=== PATIENT | female | born 1945 | race Caucasian/White ===

== ENCOUNTER 2019-05-23 20:48 | Observation (INO) ==
[2019-05-24] MEDS ORDERED: Naloxone 0.4 MG/ML INJ IVP PRN (05:50)
[2019-05-24 06:25] LABS: Hematocrit 32.7 % (35.3-44.9); Hemoglobin 9.7 g/dL (11.5-15.4); Mean Corpuscular HGB Conc 29.7 g/dL (31.6-35.5); Mean Corpuscular Volume 87.7 fL (83.0-100.0); Mean Platelet Volume 9.5 fL (9.4-12.4); Platelet Count 163 K/mcL (140-400); Red Blood Count 3.73 M/mcL (3.82-4.97); Red Cell Distribution Width 14.5 % (11.5-14.5); White Blood Count 6.4 K/mcL (4.3-11.1)
[2019-05-24 06:45] LABS: Alanine Aminotransferase 11 Units/L (7-52); Albumin 3.4 g/dL (3.5-5.7); Albumin/Globulin Ratio 1.3 (1.1-2.2); Alkaline Phosphatase 128 Units/L (34-104); Aspartate Amino Transferase 10 Units/L (13-39); BUN/Creatinine Ratio 15 (6-26); Bilirubin,Total 0.3 mg/dL (0.3-1.0); Blood Urea Nitrogen 16 mg/dL (8-23); Calcium 8.7 mg/dL (8.6-10.3); Carbon Dioxide 36 mEq/L (23-29); Chloride 101 mEq/L (98-107); Globulin 2.7 g/dL (2.4-3.5); Glucose 216 mg/dL (70-105); Magnesium 1.9 mg/dL (1.6-2.6); Osmolality,Calculated 296 (280-300); Phosphorous 3.6 mg/dL (2.7-4.5); Potassium 4.1 mEq/L (3.5-5.1); Sodium 139 mEq/L (136-145); Total Protein 6.1 g/dL (6.4-8.9); eGFR For African Americans > 60 (> 60); eGFR For Non-African Americans 51 (> 60)
[2019-05-24] MEDS ORDERED: Dextrose Gel 15 GM/37.5 ML TUBE PO PRN ×2 (07:15)
[2019-05-24] MEDS ORDERED: *HR* Dextrose 50 % in Water (Syg) 50 ML SYRINGE IVP PRN (07:15)
[2019-05-24] MEDS ORDERED: D5% in Water 1,000 ML IVC PRN (07:15)
[2019-05-24] MEDS: *HR* Rivaroxaban 10 MG TABLET PO SCH (08:50)
[2019-05-24] MEDS: Furosemide 40 MG/4 ML VIAL IVP SCH (08:50)
[2019-05-24] MEDS: Aspirin Enteric Coated 81 MG Tablet PO SCH (08:50)
[2019-05-24] MEDS ORDERED: Insulin DETEMIR 100 UNIT/ML X5UNITS SQ SCH (09:00)
[2019-05-24] MEDS ORDERED: Insulin LISPRO 300 UNITS/3 ML VIAL SQ SCH ×2 (11:30→12:00)
[2019-05-24] MEDS: Insulin LISPRO 300 UNITS/3 ML VIAL SQ SCH ×3 (16:59→21:44)
[2019-05-24] MEDS: Insulin DETEMIR 100 UNIT/ML X5UNITS SQ SCH (21:44)
[2019-05-24] MEDS: Acetaminophen 325 MG TABLET PO PRN (22:52)
[2019-05-25] MEDS: Furosemide 40 MG/4 ML VIAL IVP SCH (06:15)
[2019-05-25] MEDS: Insulin LISPRO 300 UNITS/3 ML VIAL SQ SCH ×7 (07:52→20:31)
[2019-05-25] MEDS: Insulin DETEMIR 100 UNIT/ML X5UNITS SQ SCH ×2 (07:54→20:34)
[2019-05-25] MEDS: *HR* Rivaroxaban 10 MG TABLET PO SCH (07:54)
[2019-05-25] MEDS: Aspirin Enteric Coated 81 MG Tablet PO SCH (07:54)
[2019-05-25] MEDS ORDERED: Furosemide 20 MG TABLET PO SCH (09:00)
[2019-05-25 09:17] LABS: BUN/Creatinine Ratio 14 (6-26); Blood Urea Nitrogen 14 mg/dL (8-23); Calcium 8.7 mg/dL (8.6-10.3); Carbon Dioxide 40 mEq/L (23-29); Chloride 99 mEq/L (98-107); Glucose 163 mg/dL (70-105); Magnesium 1.8 mg/dL (1.6-2.6); Osmolality,Calculated 294 (280-300); Potassium 4.1 mEq/L (3.5-5.1); Sodium 140 mEq/L (136-145); eGFR For African Americans > 60 (> 60); eGFR For Non-African Americans 55 (> 60)
[2019-05-25] MEDS: Nicotine 14 MG PATCH.TD24 TD SCH (14:20)
[2019-05-26] MEDS: Furosemide 40 MG/4 ML VIAL IVP SCH (08:06)
[2019-05-26] MEDS: Aspirin Enteric Coated 81 MG Tablet PO SCH (08:06)
[2019-05-26] MEDS: *HR* Rivaroxaban 10 MG TABLET PO SCH (08:06)
[2019-05-26] MEDS: Insulin LISPRO 300 UNITS/3 ML VIAL SQ SCH ×7 (08:07→21:54)
[2019-05-26] MEDS: Nicotine 14 MG PATCH.TD24 TD SCH (08:07)
[2019-05-26] MEDS: Insulin DETEMIR 100 UNIT/ML X5UNITS SQ SCH ×2 (08:11→22:07)
[2019-05-26 08:59] LABS: BUN/Creatinine Ratio 14 (6-26); Blood Urea Nitrogen 15 mg/dL (8-23); Carbon Dioxide 40 mEq/L (23-29); Chloride 97 mEq/L (98-107); Glucose 149 mg/dL (70-105); Osmolality,Calculated 292 (280-300); Sodium 139 mEq/L (136-145); eGFR For African Americans > 60 (> 60); eGFR For Non-African Americans 52 (> 60)
[2019-05-26] MEDS: Acetaminophen 325 MG TABLET PO PRN (22:07)
[2019-05-27 07:50] VITALS: BP 131/45
[2019-05-27 08:39] LABS: Magnesium 2.2 mg/dL (1.6-2.6); Phosphorous 3.6 mg/dL (2.7-4.5); Potassium 4.3 mEq/L (3.5-5.1)
[2019-05-27] MEDS: Insulin DETEMIR 100 UNIT/ML X5UNITS SQ SCH (08:51)
[2019-05-27] MEDS: *HR* Rivaroxaban 10 MG TABLET PO SCH (08:51)
[2019-05-27] MEDS: Nicotine 14 MG PATCH.TD24 TD SCH (08:51)
[2019-05-27] MEDS: Aspirin Enteric Coated 81 MG Tablet PO SCH (08:51)
[2019-05-27] MEDS: Insulin LISPRO 300 UNITS/3 ML VIAL SQ SCH ×2 (08:52)
[2019-05-27] MEDS ORDERED: Furosemide 20 MG TABLET PO SCH (09:00)
== END 2019-05-27 12:39 | disposition home or self-care (01) ==
LOC: 2ANU → SUATTDRO 05-24 00:28
PROVIDERS: ADMIT Internal Medicine; ATTEND Internal Medicine